=== PATIENT | male | born 1980 | race Caucasian/White ===

== ENCOUNTER → 2018-03-02 | Day surgery (SDC) | payer OTHER ==
[2018-02-26 08:02] VITALS: BP 132/78
[2018-02-26 08:52] LABS: BASO % 0.5 % (0.0-1.0); EOS # 0.8 10*3/uL (0.0-0.4); EOS % 8.5 % (1.0-4.0); HEMOGLOBIN 13.8 g/dl (14.0-18.0); LYMPH # 2.2 10*3/uL (1.3-4.4); LYMPH % 25.1 % (27.0-41.0); MEAN CELL VOLUME 89.2 fl (80.0-94.0); MEAN CORPUSCULAR HGB 29.3 pg (27.0-31.0); MEAN CORPUSCULAR HGB CONC 32.9 g/dl (33.0-37.0); MEAN PLATELET VOLUME 10.1 fl (9.6-12.3); MONO # 0.7 10*3/uL (0.1-1.0); MONO % 7.8 % (3.0-9.0); NEUT # 5.1 10*3/uL (2.3-7.9); NEUT % 57.8 % (47.0-73.0); PLATELET COUNT AUTOMATED 332 10*3/uL (130-400); RED BLOOD COUNT 4.71 10*6/uL (4.50-5.90); RED CELL DISTRI WIDTH 13.2 % (0-14.5); WHITE BLOOD COUNT 8.9 10*3/uL (4.8-10.8)
[2018-02-26 08:59] LABS: BUN 10 mg/dl (7-24); CHLORIDE 103 mmol/L (98-107); CREATININE 0.87 mg/dL (0.70-1.30); POTASSIUM 3.9 mmol/L (3.5-5.1); SODIUM 140 mmol/L (136-145)
[2018-03-01 23:52] LABS: BUN 15 mg/dl (7-24); CHLORIDE 107 mmol/L (98-107); CREATININE 0.83 mg/dL (0.70-1.30); POTASSIUM 3.8 mmol/L (3.5-5.1); SODIUM 143 mmol/L (136-145)
[2018-03-01 23:55] LABS: BASO # 0.1 10*3/uL (0.0-0.1); BASO % 0.5 % (0.0-1.0); EOS # 0.4 10*3/uL (0.0-0.4); EOS % 4.4 % (1.0-4.0); HEMATOCRIT 39.4 % (42.0-52.0); HEMOGLOBIN 13.4 g/dl (14.0-18.0); LYMPH # 2.2 10*3/uL (1.3-4.4); LYMPH % 23.5 % (27.0-41.0); MEAN CELL VOLUME 88.1 fl (80.0-94.0); MEAN PLATELET VOLUME 9.8 fl (9.6-12.3); MONO # 0.7 10*3/uL (0.1-1.0); MONO % 7.2 % (3.0-9.0); NEUT # 5.8 10*3/uL (2.3-7.9); NEUT % 64.1 % (47.0-73.0); PLATELET COUNT AUTOMATED 349 10*3/uL (130-400); RED BLOOD COUNT 4.47 10*6/uL (4.50-5.90); RED CELL DISTRI WIDTH 13.3 % (0-14.5); WHITE BLOOD COUNT 9.1 10*3/uL (4.8-10.8)
[~2018-03-02] VITALS: Ht 175.2 cm; Wt 88.5 kg
[2018-03-02] VITALS (7 sets, daily range): BP systolic 120–162; BP diastolic 71–108
[~2018-03-02] MED LIST: ADDERALL 20 MG20 MG PO; ADDERALL XR25 MG PO; ADDERALL15 MG PO; AMBIEN10 M1 PO; ATARAX25 MG PO; ATIVAN0.5 MG PO; CELEXA20 MG PO; Ciprofloxacin500 MG PO; DARVOCET N 1001 TAB PO; HYDROCODONE BIT1 T11 PO; LATU40TA PO; LEXAPRO10 MG PO; Motrin,Rufen800 MG PO; NEURONTIN100 MG PO; NEURONTIN300 MG PO; OMEPRAZOLE20 M2 PO; OMEPRAZOLE40 MG PO; PAXIL20 MG PO; PRILOSEC40 MG PO; PROPRANOLOL HCL20 MG PO; SUBOXONE 8 MG-1 EACH SL; VYVANSE40 MG PO; Wellbutrin Sr100 MG PO; ZOFRAN ODT4 MG SL; Zofran4 MG PO
== END | disposition home or self-care (01) ==
LOC: SDC 02-26 08:00
DX: K40.90 Unilateral inguinal hernia, without obstruction or gangrene, not specified as recurrent (principal); K21.9 Gastro-esophageal reflux disease without esophagitis; F31.9 Bipolar disorder, unspecified; Z98.890 Other specified postprocedural states; F17.210 Nicotine dependence, cigarettes, uncomplicated; Z79.899 Other long term (current) drug therapy

== ENCOUNTER 2018-08-18 04:41 | Emergency (ER) | payer OTHER ==
[~2018-08-18] VITALS: Ht 175.2 cm; Wt 81.6 kg
[2018-08-18 04:48] VITALS: BP 141/58
[2018-08-18] MEDS ORDERED: AUGMENTIN 875-875 MG PO (05:13)
== END 2018-08-18 05:12 | disposition home or self-care (01) ==
LOC: ED 04:41
DX: L03.114 Cellulitis of left upper limb (principal); R51 Headache; K21.9 Gastro-esophageal reflux disease without esophagitis; E05.90 Thyrotoxicosis, unspecified without thyrotoxic crisis or storm; F17.200 Nicotine dependence, unspecified, uncomplicated; Z79.1 Long term (current) use of non-steroidal anti-inflammatories (NSAID); Z79.899 Other long term (current) drug therapy

== ENCOUNTER 2018-08-22 10:05 | Emergency (ER) | payer OTHER ==
[~2018-08-22] VITALS: Ht 175.2 cm; Wt 83.9 kg
[~2018-08-22 10:05] MED LIST changes: +AUGMENTIN 875-875 MG PO
[2018-08-22 10:13] VITALS: BP 143/97
[2018-08-22] MEDS ORDERED: ZOFRAN4 MG PO (10:50)
== END 2018-08-22 10:56 | disposition home or self-care (01) ==
LOC: ED 10:05
DX: L02.414 Cutaneous abscess of left upper limb (principal); R03.0 Elevated blood-pressure reading, without diagnosis of hypertension; K21.9 Gastro-esophageal reflux disease without esophagitis; E05.90 Thyrotoxicosis, unspecified without thyrotoxic crisis or storm; F17.200 Nicotine dependence, unspecified, uncomplicated; Z79.1 Long term (current) use of non-steroidal anti-inflammatories (NSAID); Z79.2 Long term (current) use of antibiotics; Z79.899 Other long term (current) drug therapy

== ENCOUNTER → 2020-05-05 | Outpatient (CLI) | payer OTHER ==
[~2020-05-05] MED LIST changes: +ZOFRAN4 MG PO
== END | disposition home or self-care (01) ==
LOC: RAD 13:22
DX: R06.02 Shortness of breath (principal)

== ENCOUNTER 2023-08-02 10:50 | Emergency (ER) | payer OTHER ==
[~2023-08-02] VITALS: Ht 175.2 cm; Wt 83.9 kg
[2023-08-02 11:49] VITALS: BP 152/92
[2023-08-02] MEDS ORDERED: ZOLPIDEM TART12.5 MG PO (11:50)
[2023-08-02] MEDS ORDERED: MONTELUKAST SOD10 MG PO (11:52)
[2023-08-02] MEDS ORDERED: AMOX-CLAV 875-1 EACH PO (12:15)
== END 2023-08-02 11:30 | disposition home or self-care (01) ==
LOC: ED 10:50
DX: H92.21 Otorrhagia, right ear (principal); F32.A Depression, unspecified; F41.9 Anxiety disorder, unspecified; K21.9 Gastro-esophageal reflux disease without esophagitis; Z98.890 Other specified postprocedural states; F17.200 Nicotine dependence, unspecified, uncomplicated

== ENCOUNTER → 2025-09-30 | Outpatient (CLI) | payer BC ==
[~2025-09-30] MED LIST changes: +AMOX-CLAV 875-1 EACH PO; +MONTELUKAST SOD10 MG PO; +ZOLPIDEM TART12.5 MG PO
== END | disposition home or self-care (01) ==
LOC: ORTHO 07:52
PROVIDERS: ATTEND Orthopaedic Surgery
DX: M25.842 Other specified joint disorders, left hand (principal); M79.642 Pain in left hand